=== PATIENT | female | born 1995 | race Two or more races ===

== ENCOUNTER 2017-12-08 05:35 | Inpatient (IN) | payer MEDICAID ==
[2017-12-08] MEDS ORDERED: Metoclopramide 10 MG/2 ML SDV ONE (06:02)
[2017-12-08] MEDS ORDERED: Citric Acid/Sodium Citrate Solution 30 ML Cup ONE (06:02)
[2017-12-08] MEDS ORDERED: Bupivacaine 0.5% 30 ML SDV ONE (06:08)
[2017-12-08] MEDS ORDERED: Metoclopramide 10 MG/2 ML SDV IVPUSH ONE (06:11)
[2017-12-08] MEDS ORDERED: ceFAZolin 2 GM in Premix Bag 1 BAG IV ONE (06:11)
[2017-12-08] MEDS ORDERED: Sodium Chloride 0.9% 10 ML Syringe FLUSH PRN (06:11)
[2017-12-08] MEDS ORDERED: Citric Acid/Sodium Citrate Solution 30 ML Cup PO ONE (06:11)
--- NOTE | 2017-12-08 06:14 | PCM.LDHP ---
L&D History of Present Illness - General Date of Service: 12/08/17 Admit Problem/Dx: Admission Diagnosis/Problem Admission Diagnosis/Problem Source of Information: Patient History Limitations: Reports: No Limitations - History of Present Illness Introduction:: 22-year-old with 4 prior C-sections estimated due date unsure but stated to be 40 weeks and 2 days by patient. Last menstrual period puts her at 45+ weeks presented to labor and delivery 5 cm dilated 100% effaced proceed with section. Improves with: Reports: None Worsens with: Reports: None Associated Symptoms: Reports: N - Related Data Allergies/Adverse Reactions: Allergies Allergy/AdvReac Type Severity Reaction Status Date / Time epinephrine [From EpiPen] Allergy Swelling Verified 05/26/15 19:49 DIRECTOR OF PATIENT SAFETY venom-honey bee Allergy Swelling Verified 05/26/15 19:49 DIRECTOR OF PATIENT SAFETY [bee venom (honey bee)] Home Medications: Home Meds . [No Known Home Meds] 03/14/15 [History] Past Medical History HEENT History: Reports: None Cardiovascular History: Reports: None Respiratory History: Reports: None Gastrointestinal History: Reports: None Genitourinary History: Reports: None Other Genitourinary History: "kidney infection" DIRECTOR OF LABOR RELATIONS History: Reports: Musculoskeletal History: Reports: None Neurological History: Reports: None Psychiatric History: Reports: None Endocrine/Metabolic History: Reports: None Hematologic History: Reports: None Immunologic History: Reports: None Oncologic (Cancer) History: Reports: None Dermatologic History: Reports: None - Past Surgical History Female Surgical History: Reports: Section H&P Review of Systems - Review of Systems: Review Of Systems: See Below General: Reports: No Symptoms HEENT: Reports: No Symptoms Pulmonary: Reports: No Symptoms Cardiovascular: Reports: No Symptoms Gastrointestinal: Reports: No Symptoms Genitourinary: Reports: No Symptoms Musculoskeletal: Reports: No Symptoms Skin: Reports: No Symptoms Psychiatric: Reports: No Symptoms Neurological: Reports: No Symptoms Hematologic/Lymphatic: Reports: No Symptoms Immunologic: Reports: No Symptoms L&D Exam - Exam Exam: See Below - OB Specific Fundal Height In cm: 37 Contraction Duration (sec): 60 Contraction Frequency (min): 3 Contraction Intensity: Moderate to Strong Movement: Active Heart Tones: Present Heart Tones per Min: 130 (accel with exam) Heart Rate (FHR) Variability: Moderate (6-25 bmp) Presentation: Vertex - Hamm Score Hamm Score Cervix Position: Anterior Hamm Score Consistency: Soft Hamm Score Effacement: >80% Hamm Score Dilation: > 5 cm Hamm Score 's Station: +1, +2 Hamm Score Total: 13 - Exam General: Alert, Oriented HEENT: PERRLA, Conjunctiva Clear, EACs Clear, EOMI, Hearing Intact, Mucosa Moist & [place], Nares Patent, Normal Nasal Septum, Posterior Pharynx Clear, TMs Clear Neck: Supple, Trachea Midline Lungs: Clear to Auscultation, Normal Respiratory Effort Cardiovascular: Regular Rate, Regular Rhythm GI/Abdominal Exam: Normal Bowel Sounds, Soft, Non-Tender Rectal Exam: Normal Exam, Normal Rectal Tone Genitourinary: Normal external exam, Normal bimanual exam, Normal speculum exam Extremities: Normal Inspection, Normal Range of Motion, Non-Tender, No Pedal Edema, Normal Capillary Refill Skin: Warm, Dry, Intact Neurological: Reflexes Equal Bilateral Psychiatric: Alert, Normal Affect, Normal Mood - Problem List (1) 40 weeks gestation of SNOMED Code(s): 54312172 ICD Code: Z3A.40 - 40 WEEKS GESTATION OF Status: Acute Current Visit: Yes (2) delivery due to maternal disorder, delivered, current hospitalization SNOMED Code(s): 764260954 ICD Code: O82 - ENCOUNTER FOR DELIVERY WITHOUT INDICATION; O99.89 - OTH DISEASES AND CONDITIONS COMPL PREG/CHLDBRTH Status: Acute Current Visit : Yes (3) History of SNOMED Code(s): 129834687 ICD Code: Z98.891 - HISTORY OF UTERINE SCAR FROM PREVIOUS SURGERY Status: Acute Current Visit: Yes Problem List Initiated/Reviewed/Updated: No Orders Last 24hrs: Active Orders 24 hr Category Date Time Status CBC W/O DIFF,HEMOGRAM [HEME] Stat Lab 12/08/17 05:50 Ordered TYPE AND SCREEN [BBK] Stat Lab 12/08/17 05:50 Ordered Assessment/Plan Comment:: Proceed with
[2017-12-08] MEDS ORDERED: Lactated Ringers 1,000 ML IV SCH (06:15)
[2017-12-08] MEDS ORDERED: Oxytocin 10 Units/1 ML SDV ONE ×2 (06:16→06:48)
[2017-12-08] MEDS ORDERED: Ondansetron 4 MG/2 ML SDV ONE (06:16)
[2017-12-08] MEDS ORDERED: Morphine PF 10 MG/10 ML SDV ONE (06:16)
[2017-12-08] MEDS ORDERED: ceFAZolin 1 GM Vial ONE (06:16)
[2017-12-08] MEDS ORDERED: Ketorolac 30 MG/ML SDV ONE (06:16)
[2017-12-08] MEDS ORDERED: Lactated Ringers 2,000 ML ONE (06:16)
[2017-12-08] MEDS ORDERED: diphenhydrAMINE 50 MG/ML SDV IVPUSH PRN ×2 (06:50→09:39)
[2017-12-08] MEDS ORDERED: ePHEDrine 50 MG/ML SDV IVPUSH PRN ×2 (06:50→09:39)
[2017-12-08] MEDS ORDERED: Ondansetron 4 MG/2 ML SDV IVPUSH PRN (06:50)
[2017-12-08] MEDS ORDERED: Ketorolac 30 MG/ML SDV IVPUSH ONE (06:50)
[2017-12-08] MEDS ORDERED: fentaNYL 100 MCG/2 ML SDV IVPUSH PRN (06:50)
[2017-12-08] MEDS ORDERED: Lidocaine 1% 2 ML ONE (07:10)
[2017-12-08] MEDS ORDERED: Phenylephrine/Normal Saline 100 MCG/ML 10 ML Syringe ONE (07:27)
[2017-12-08] MEDS ORDERED: ePHEDrine/Normal Saline 25 MG/5 ML Syringe ONE (07:27)
--- NOTE | 2017-12-08 07:45 | PCM.OPNOTE ---
- General Post-Op/Procedure Note Date of Surgery/Procedure: 12/08/17 Operative Procedure(s): Repeat low segment transverse (fifth ). Cystorrhaphy Pre Op Diagnosis: 4 prior C-sections in active labor Post-Op Diagnosis: Same plus bladder injury (felt to be at time of insertion of Myers because of very thin bladder wall from 4 previous C-sections and scarring in that area.) and hemorrhage. Anesthesia Technique: Spinal Primary Surgeon: Erick Guevara Secondary Surgeon: Marian Jacobson Anesthesia Provider: Chiara Moser Reason Technical Education Teacher Was Necessary: Difficult surgery fifth for retraction assist in surgery decrease comorbidity and comortality Role of Technical Education Teacher: Difficult surgery fifth for retraction assist in surgery decrease comorbidity and comortality Fluid Replacement, Intraop: 3,500 (2 Units O neg) Output, Urine Amount: 50 EBL in mLs: 2,000 Drain/Tube Comments:: Only to gravity drainage Complications: Small rent in the bladder was repaired (bladder wall very thin from 4 prior C-sections and rent probably occurred when the Myers catheter was placed) surgical incision was 5-6 cm above the area of the rent in the bladder. hemorrhage requiring blood transfusion due to drop in vital signs. Condition: Good Free Text/Narrative:: Patient transported to operating room and placed under spinal anesthesia in the supine position with wedge under the right hip and right flank. SCDs in place and functioning prior surgery. Ancef 2 g given intravenously prior surgery. Patient's abdomen prepared and draped in a sterile fashion after Myers catheter was placed. In (rent in bladder wall was noted at time of section approximate 6 cm from the area of the incision. Rent felt to have occurred with placement of Myers catheter because of very thin bladder wall related to 4 previous C-sections) timeout was performed confirming name, date of , procedure as section repeat. Adequate level of anesthesia was confirmed. was brought to the operating room. Injecting 20 mL of 0.5 % Marcaine in the area of the planned incision which had been marked on the band drape, the incision was made and care was sharp section to into the anterior fascia. Entry was made into the abdominal cavity at the superior edge of the incision near the umbilicus to try to avoid damage to bladder. Bladder flap was created pushed caudad. Uterine incision was made and the uterine cavity was entered meconium staining was encountered. Dr. Mcgowan system support specialist present and cared for the . The male was delivered at 0636 hrs. Apgars 8/9 no nuchal cord weight 8 lbs. 5 oz. Cord clamped baby handed immediately to the system support specialist. Cord blood collected from three-vessel cord. Segment of cord was collected for pediatrics. The placenta was removed manually. Image her cavity inspected. Sponge needle pack asthma and and sharp count correct times one uterine incision closed with 0 Monocryl first layer running locking suture. At that time urine was noted to be leaking from the rent in the bladder. Attention was turned to the bladder and the cystorrhaphy was performed closing the bladder in 2 layers with first layer running locking suture of 2-0 Monocryl second layer imbricating 2-0 Monocryl. Baby formula was then introduced into the Myers catheter and no spill was noted. (When the catheter was first placed the urine output was 5 mL. An rent felt to be secondary to very thin bladder wall from 4 previous C-sections. The scar was approximate 6 cm above the area of the rent and no surgical procedure had been performed in the area of the rent. The second layer of the uterine closure was imbricating suture with 0 Monocryl. Both tubes and ovaries were normal clot screen from the gutters and cul-de-sac. Due to the amount of blood loss patient's blood pressure dropped estimated blood loss 2000 mL 2 units of O - blood were ordered because patient's blood had not had time to be type and crossmatch. And blood transfusion was begun sponge needle pack asthma sharp count PDS for the anterior fascia utilizing electrocautery and freeing up the scar tissue from previous C-sections in the subcutaneous tissue and the subcutaneous tissue was approximated with 0 interrupted suture 5 using Monocryl. The skin was closed with Travis needle 3-0 Monocryl. Dermabond Preneo applied. Clots were cleaned from the vagina and included in the 2000 mL estimated blood loss there was approximately 250-300 mL of blood clot from the vagina. Patient transported postanesthesia care unit in serious condition. Second unit of blood has been transfused. Patient will be typed and cross match for 4 units of blood in case Seim is needed hemoglobin hematocrit ordered for 4 hours postop.
--- NOTE | 2017-12-08 07:58 | PCM.PREANE ---
Preanesthetic Assessment - Anesthesia/Transfusion/Family Hx Anesthesia History: Prior Anesthesia Without Reaction Family History of Anesthesia Reaction: No Transfusion History: Unknown Intubation History: Unknown - Review of Systems General: No Symptoms Pulmonary: No Symptoms Cardiovascular: No Symptoms Gastrointestinal: No Symptoms Neurological: No Symptoms Other: Reports: None - Physical Assessment NPO Status Date: 12/08/17 NPO Status Time: 00:00 Pulse: 95 O2 Sat by Pulse Oximetry: 98 Respiratory Rate: 17 Blood Pressure: 103/60 Vital Signs: Last Vital Signs Temp 36.7 C 12/08/17 07:36 Pulse 83 12/08/17 07:36 Resp 17 12/08/17 07:36 BP 89/44 L 12/08/17 07:36 Pulse Ox 100 12/08/17 07:36 ASA Class: 2E Mental Status: Alert & Oriented x3 Airway Class: Mallampati = 1 Dentition: Reports: Normal Dentition Thyro-Mental Finger Breadths: 3 Mouth Opening Finger Breadths: 3 ROM/Head Extension: Full Lungs: Clear to Auscultation, Normal Respiratory Effort Cardiovascular: Regular Rate, Regular Rhythm - Lab Values: Laboratory Last Values WBC 10.47 K/mm3 (3.98-10.04) H 12/08/17 06:10 RBC 3.46 M/mm3 (3.98-5.22) L 12/08/17 06:10 Hgb 9.8 gm/L (11.2-15.7) L 12/08/17 06:10 Hct 31.2 % (34.1-44.9) L 12/08/17 06:10 MCV 90.2 fl (79.4-94.8) 12/08/17 06:10 MCH 28.3 pg (25.6-32.2) 12/08/17 06:10 MCHC 31.4 g/dl (32.2-35.5) L 12/08/17 06:10 RDW Std Deviation 48.7 fL (36.4-46.3) H 12/08/17 06:10 Plt Count 281 K/mm3 (182-369) 12/08/17 06:10 MPV 9.1 fl (9.4-12.3) L 12/08/17 06:10 Neut % (Auto) 73.1 % (34.0-71.1) H 12/08/17 06:10 Lymph % (Auto) 17.7 % (19.3-51.7) L 12/08/17 06:10 [place]kins % (Auto) 8.2 % (4.7-12.5) 12/08/17 06:10 Eos % (Auto) 0.2 (0.7-5.8) L 12/08/17 06:10 Baso % (Auto) 0.3 % (0.1-1.2) 12/08/17 06:10 Neut # (Auto) 7.66 K/mm3 (1.56-6.13) H 12/08/17 06:10 Lymph # (Auto) 1.85 K/mm3 (1.18-3.74) 12/08/17 06:10 [place]kins # (Auto) 0.86 K/mm3 (0.24-0.36) H 12/08/17 06:10 Eos # (Auto) 0.02 K/mm3 (0.04-0.36) L 12/08/17 06:10 Baso # (Auto) 0.03 K/mm3 (0.01-0.08) 12/08/17 06:10 Manual Slide Review Not Reportable 12/08/17 06:10 Crossmatch See Detail 12/08/17 06:10 - Allergies Allergies/Adverse Reactions: Allergies Allergy/AdvReac Type Severity Reaction Status Date / Time epinephrine [From EpiPen] Allergy Swelling Verified 05/26/15 19:49 AUDIO VISUAL COORDINATOR venom-honey bee Allergy Swelling Verified 05/26/15 19:49 AUDIO VISUAL COORDINATOR [bee venom (honey bee)] - Acknowledgements Anesthesia Type Planned: Spinal Pt an Appropriate Candidate for the Planned Anesthesia: Yes Alternatives and Risks of Anesthesia Discussed w Pt/Guardian: Yes Pt/Guardian Understands and Agrees with Anesthesia Plan: Yes Additional Comments: Called for Stat C section. Spoke with patient and her . Verbalized understanding. Dr. Guevara at bedside. PreAnesthesia Questionnaire HEENT History: Reports: None Cardiovascular History: Reports: None Respiratory History: Reports: None Gastrointestinal History: Reports: None Genitourinary History: Reports: None Other Genitourinary History: "kidney infection" RADIOLOGY NURSE History: Reports: Musculoskeletal History: Reports: None Neurological History: Reports: None Psychiatric History: Reports: None Endocrine/Metabolic History: Reports: None Hematologic History: Reports: None Immunologic History: Reports: None Oncologic (Cancer) History: Reports: None Dermatologic History: Reports: None - Past Surgical History Female Surgical History: Reports: Section - HOME MEDS Home Medications: Home Meds . [No Known Home Meds] 03/14/15 [History] - CURRENT (IN HOUSE) MEDS Current Meds: Current Medications Diphenhydramine HCl (Benadryl) 25 mg IVPUSH Q6H PRN PRN Reason: Pruritis Ephedrine Sulfate (Ephedrine Sulfate) 5 mg IVPUSH ASDIRECTED PRN PRN Reason: Hypotension Fentanyl (Sublimaze) 50 mcg IVPUSH Q5M PRN PRN Reason: Pain Lactated Ringer's (Ringers, Lactated) 1,000 mls @ 125 mls/hr IV ASDIRECTED BARRETT Ondansetron HCl (Zofran) 4 mg IVPUSH ONETIME PRN PRN Reason: Nausea/Vomiting Sodium Chloride (Saline Flush) 10 ml FLUSH ASDIRECTED PRN PRN Reason: Keep Vein Open Discontinued Medications Bupivacaine HCl (Marcaine 0.5%) Confirm Administered Dose 30 ml .ROUTE .STK-MED ONE Stop: 12/08/17 06:09 Cefazolin Sodium (Ancef) Confirm Administered Dose 2 gm .ROUTE .STK-MED ONE Stop: 12/08/17 06:17 Citric Acid/Sodium Citrate (Bicitra Solution) Confirm Administered Dose 30 ml .ROUTE .STK-MED ONE Stop: 12/08/17 06:03 Citric Acid/Sodium Citrate (Bicitra Solution) 30 ml PO ONETIME ONE Stop: 12/08/17 06:12 Ephedrine Sulfate (Ephedrine In Ns) Confirm Administered Dose 25 mg .ROUTE .STK- MED ONE Stop: 12/08/17 07:28 Lactated Ringer's (Ringers, Lactated) Confirm Administered Dose 2,000 mls @ as directed .ROUTE .STK-MED ONE Stop: 12/08/17 06:17 Cefazolin Sodium/Dextrose 2 gm (/ Premix) 50 mls @ 100 mls/hr IV ONETIME ONE Stop: 12/08/17 06:40 Lidocaine HCl (Xylocaine-Mpf 1%) Confirm Administered Dose 2 mls @ as directed .ROUTE .STK-MED ONE Stop: 12/08/17 07:11 Ketorolac Tromethamine (Toradol) Confirm Administered Dose 30 mg .ROUTE .STK- MED ONE Stop: 12/08/17 06:17 Ketorolac Tromethamine (Toradol) 30 mg IVPUSH ONETIME ONE Stop: 12/08/17 06:51 Metoclopramide HCl (Reglan) Confirm Administered Dose 10 mg .ROUTE .STK-MED ONE Stop: 12/08/17 06:03 Metoclopramide HCl (Reglan) 10 mg IVPUSH ONETIME ONE Stop: 12/08/17 06:12 Morphine Sulfate (Duramorph Pf) Confirm Administered Dose 10 mg .ROUTE .ST-MED ONE Stop: 12/08/17 06:17 Ondansetron HCl (Zofran) Confirm Administered Dose 4 mg .ROUTE .ST-MED ONE Stop: 12/08/17 06:17 Oxytocin (Pitocin) Confirm Administered Dose 10 unit .ROUTE .STK-MED ONE Stop: 12/08/17 06:17 Oxytocin (Pitocin) Confirm Administered Dose 10 unit .ROUTE .ST-MED ONE Stop: 12/08/17 06:49 Phenylephrine HCl (Phenylephrine In Ns 100 Mcg/Ml) Confirm Administered Dose 2 mg .ROUTE .STK-MED ONE Stop: 12/08/17 07:28
--- NOTE | 2017-12-08 07:59 | PCM.POSTAN ---
POST ANESTHESIA ASSESSMENT - MENTAL STATUS Mental Status: Alert, Oriented - VITAL SIGNS Pulse Rate: 83 SaO2: 100 Resp Rate: 17 Blood Pressure: 88/44 Temperature: 36.7 C - RESPIRATORY Respiratory Status: Respiratory Rate WNL, Airway Patent, O2 Saturation Stable, Supplemental Oxygen - CARDIOVASCULAR CV Status: Pulse Rate WNL, Blood Pressure Stable - GASTROINTESTINAL GI Status: No Symptoms - PAIN Pain Score: 0 - POST OP HYDRATION Hydration Status: Adequate & Stable
[2017-12-08] MEDS ORDERED: Ondansetron 4 MG/2 ML SDV IV PRN (09:39)
[2017-12-08] MEDS ORDERED: Acetaminophen 325 MG Tab PO PRN (09:39)
[2017-12-08] MEDS ORDERED: Lanolin 100% Cream 7 GM Tube TOP PRN (09:39)
[2017-12-08] MEDS ORDERED: Dextrose 5%-Lactated Ringers 1,000 ML IV SCH (09:39)
[2017-12-08] MEDS ORDERED: Naloxone 0.4 MG/ML SDV IVPUSH PRN (09:39)
[2017-12-08] MEDS: Simethicone 80 MG Tab.Chew PO SCH ×4 (11:00→21:45)
--- NOTE | 2017-12-08 11:01 | PCM.SN ---
- Free Text/Narrative Note: Pitocin has been restarted. Cervix unchanged from 0830 exam. Still vertex. Cat i FHR
--- NOTE | 2017-12-08 12:02 | PCM.SN ---
- Free Text/Narrative Note: Hemoglobin approximate 4 hours postop 8.5 after 2 units of O- blood. Vital signs are stable. Patient is awake alert not symptomatic at present time. Repeat CBC ordered for tomorrow morning and Sunday morning.
[2017-12-08] MEDS: Ketorolac 30 MG/ML SDV IVPUSH SCH ×2 (13:33→18:50)
[2017-12-08] MEDS ORDERED: Sodium Chloride 0.9% 500 ML IV SCH (17:00)
[2017-12-09] MEDS: Ketorolac 30 MG/ML SDV IVPUSH SCH (02:42)
--- NOTE | 2017-12-09 10:51 | PCM.SN ---
- Free Text/Narrative Note: AB cord blood positive for drugs and urine of mother presumptive positive confirmatory test pending. Ornamental Painter has on CPS hold until Sunday. Seen on rounds today patient's sleeping so she is "tired", declined blood transfusion for now hemoglobin as low at 7.1 this morning after 2 units of O- blood yesterday. Patient had been more alert earlier was visited by a relative and has now very somnolent. A urinalysis and UDS ordered. Incision looks normal urine is clear and yellow begin Macrobid 100 by mouth twice a day and will need to take this until Myers is removed in approximately 10 days. Probably around 18 December the Myers will be removed. No leg cramping. No heavy vaginal bleeding. Chest is clear no abnormal heart sounds no abnormal breath sounds.
[2017-12-09] MEDS: Nitrofurantoin Monohydrate/Macrocrystalline 100 MG Cap PO SCH ×2 (11:03→20:44)
[2017-12-09] MEDS: Simethicone 80 MG Tab.Chew PO SCH ×4 (11:03→22:15)
[2017-12-09] MEDS: Ibuprofen 600 MG Tab PO PRN ×2 (14:15→20:46)
[2017-12-09] MEDS: Acetaminophen/oxyCODONE 325-5 MG Tab PO PRN (15:26)
[2017-12-09] MEDS: Docusate Sodium 100 MG Cap PO PRN (20:45)
[2017-12-10] MEDS: Acetaminophen/oxyCODONE 325-5 MG Tab PO PRN ×3 (05:15→20:33)
[2017-12-10] MEDS: Docusate Sodium 100 MG Cap PO PRN ×2 (09:56→20:28)
[2017-12-10] MEDS: Simethicone 80 MG Tab.Chew PO SCH ×3 (09:56→20:31)
[2017-12-10] MEDS: Ibuprofen 600 MG Tab PO PRN ×2 (09:57→20:30)
[2017-12-10] MEDS: Nitrofurantoin Monohydrate/Macrocrystalline 100 MG Cap PO SCH ×2 (09:58→20:32)
[2017-12-10] MEDS ORDERED: diphenhydrAMINE 25 MG Cap PO ONE (10:20)
[2017-12-10] MEDS ORDERED: Sodium Chloride 0.9% 500 ML IV SCH (10:30)
--- NOTE | 2017-12-10 10:33 | PCM.SN ---
- Free Text/Narrative Note: Second day postop Patient is afebrile In general patient is very pale. Chest is clear. Cardiovascular examination reveals grade 2/6 murmur probably secondary to the anemia (hemoglobin 7.0) patient gets tired with ambulation. And feels extremely tired this morning. Concerned about her anemia and talked with the patient at length and she and consort agreed with 2 unit blood transfusion. Uterus is involuting normally at U -2. Incision normal. No leg cramping. No heavy vaginal bleeding at this time. Order written for 2 units of transfusion. I talked with the lab concerning and a new type and screen since patient did receive 2 units of O- blood at surgery. I talked with body in the lab and asked on 3 separate occasions if a new type and screen was necessary before transfusing blood and she said no. Will order CBC 4 AM. Patient is not in condition to go home at present time.
[2017-12-11] MEDS: Ibuprofen 600 MG Tab PO PRN (04:39)
[2017-12-11] MEDS: Simethicone 80 MG Tab.Chew PO SCH ×2 (05:05→08:12)
[2017-12-11] MEDS: Acetaminophen/oxyCODONE 325-5 MG Tab PO PRN (08:11)
[2017-12-11] MEDS: Nitrofurantoin Monohydrate/Macrocrystalline 100 MG Cap PO SCH (08:11)
[2017-12-11 08:14] VITALS: BP 131/76
--- NOTE | 2017-12-11 10:35 | PCM.DCSUM1 ---
Discharge Summary - Hospital Course Free Text/Narrative:: [facility], [place] Post-Op/Procedure Note Patient Name: ISA MARTINEZ Date of : 89 Patient Status: Inpatient Attending Provider: Erick Guevara Date: 12/08/17 07:40 Initialization Date: 12/08/17 07:40 - General Post-Op/Procedure Note Date of Surgery/Procedure: 12/08/17 Operative Procedure(s): Repeat low segment transverse (fifth ). Cystorrhaphy Pre Op Diagnosis: 4 prior C-sections in active labor Post-Op Diagnosis: Same plus bladder injury (felt to be at time of insertion of Pro because of very thin bladder wall from 4 previous C-sections and scarring in that area.) and hemorrhage. Anesthesia Technique: Spinal Primary Surgeon: Erick Guevara Secondary Surgeon: Marian Jacobson Anesthesia Provider: Chiara Moser Reason Communication Manager Was Necessary: Difficult surgery fifth for retraction assist in surgery decrease comorbidity and comortality Role of Communication Manager: Difficult surgery fifth for retraction assist in surgery decrease comorbidity and comortality Fluid Replacement, Intraop: 3,500 (2 Units O neg) Output, Urine Amount: 50 EBL in mLs: 2,000 Drain/Tube Comments:: Only to gravity drainage Complications: Small rent in the bladder was repaired (bladder wall very thin from 4 prior C-sections and rent probably occurred when the Pro catheter was placed) surgical incision was 5-6 cm above the area of the rent in the bladder. hemorrhage requiring blood transfusion due to drop in vital signs. Condition: Good Free Text/Narrative:: Patient transported to operating room and placed under spinal anesthesia in the supine position with wedge under the right hip and right flank. SCDs in place and functioning prior surgery. Ancef 2 g given intravenously prior surgery. Patient's abdomen prepared and draped in a sterile fashion after Pro catheter was placed. In (rent in bladder wall was noted at time of section approximate 6 cm from the area of the incision. Rent felt to have occurred with placement of Pro catheter because of very thin bladder wall related to 4 previous C-sections) timeout was performed confirming name, date of , procedure as section repeat. Adequate level of anesthesia was confirmed. was brought to the operating room. Injecting 20 mL of 0.5 % Marcaine in the area of the planned incision which had been marked on the band drape, the incision was made and care was sharp section to into the anterior fascia. Entry was made into the abdominal cavity at the superior edge of the incision near the umbilicus to try to avoid damage to bladder. Bladder flap was created pushed caudad. Uterine incision was made and the uterine cavity was entered meconium staining was encountered. Dr. Mcgowan supervisor bakery sanitation present and cared for the . The male was delivered at 0636 hrs. Apgars 8/9 no nuchal cord weight 8 lbs. 5 oz. Cord clamped baby handed immediately to the supervisor bakery sanitation. Cord blood collected from three-vessel cord. Segment of cord was collected for pediatrics. The placenta was removed manually. Image her cavity inspected. Sponge needle pack asthma and and sharp count correct times one uterine incision closed with 0 Monocryl first layer running locking suture. At that time urine was noted to be leaking from the rent in the bladder. Attention was turned to the bladder and the cystorrhaphy was performed closing the bladder in 2 layers with first layer running locking suture of 2-0 Monocryl second layer imbricating 2-0 Monocryl. Baby formula was then introduced into the Pro catheter and no spill was noted. (When the catheter was first placed the urine output was 5 mL. An rent felt to be secondary to very thin bladder wall from 4 previous C-sections. The scar was approximate 6 cm above the area of the rent and no surgical procedure had been performed in the area of the rent. The second layer of the uterine closure was imbricating suture with 0 Monocryl. Both tubes and ovaries were normal clot screen from the gutters and cul-de-sac. Due to the amount of blood loss patient's blood pressure dropped estimated blood loss 2000 mL 2 units of O - blood were ordered because patient's blood had not had time to be type and crossmatch. And blood transfusion was begun sponge needle pack asthma sharp count PDS for the anterior fascia utilizing electrocautery and freeing up the scar tissue from previous C-sections in the subcutaneous tissue and the subcutaneous tissue was approximated with 0 interrupted suture 5 using Monocryl. The skin was closed with Travis needle 3-0 Monocryl. Dermabond Preneo applied. Clots were cleaned from the vagina and included in the 2000 mL estimated blood loss there was approximately 250-300 mL of blood clot from the vagina. Patient transported postanesthesia care unit in serious condition. Second unit of blood has been transfused. Patient will be typed and cross match for 4 units of blood in case Seim is needed hemoglobin hematocrit ordered for 4 hours postop. HPI Initial Comments: [facility], [place] Post-Op/Procedure Note Patient Name: ISA MARTINEZ Date of : 89 Patient Status: Inpatient Attending Provider: Erick Guevara Date: 12/08/17 07:40 Initialization Date: 12/08/17 07:40 - General Post-Op/Procedure Note Date of Surgery/Procedure: 12/08/17 Operative Procedure(s): Repeat low segment transverse (fifth ). Cystorrhaphy Pre Op Diagnosis: 4 prior C-sections in active labor Post-Op Diagnosis: Same plus bladder injury (felt to be at time of insertion of Pro because of very thin bladder wall from 4 previous C-sections and scarring in that area.) and hemorrhage. Anesthesia Technique: Spinal Primary Surgeon: Erick Guevara Secondary Surgeon: Marian Jacobson Anesthesia Provider: Chiara Moser Reason Communication Manager Was Necessary: Difficult surgery fifth for retraction assist in surgery decrease comorbidity and comortality Role of Communication Manager: Difficult surgery fifth for retraction assist in surgery decrease comorbidity and comortality Fluid Replacement, Intraop: 3,500 (2 Units O neg) Output, Urine Amount: 50 EBL in mLs: 2,000 Drain/Tube Comments:: Only to gravity drainage Complications: Small rent in the bladder was repaired (bladder wall very thin from 4 prior C-sections and rent probably occurred when the Pro catheter was placed) surgical incision was 5-6 cm above the area of the rent in the bladder. hemorrhage requiring blood transfusion due to drop in vital signs. Condition: Good Free Text/Narrative:: Patient transported to operating room and placed under spinal anesthesia in the supine position with wedge under the right hip and right flank. SCDs in place and functioning prior surgery. Ancef 2 g given intravenously prior surgery. Patient's abdomen prepared and draped in a sterile fashion after Pro catheter was placed. In (rent in bladder wall was noted at time of section approximate 6 cm from the area of the incision. Rent felt to have occurred with placement of Pro catheter because of very thin bladder wall related to 4 previous C-sections) timeout was performed confirming name, date of , procedure as section repeat. Adequate level of anesthesia was confirmed. was brought to the operating room. Injecting 20 mL of 0.5 % Marcaine in the area of the planned incision which had been marked on the band drape, the incision was made and care was sharp section to into the anterior fascia. Entry was made into the abdominal cavity at the superior edge of the incision near the umbilicus to try to avoid damage to bladder. Bladder flap was created pushed caudad. Uterine incision was made and the uterine cavity was entered meconium staining was encountered. Dr. Mcgowan supervisor bakery sanitation present and cared for the . The male was delivered at 0636 hrs. Apgars 8/9 no nuchal cord weight 8 lbs. 5 oz. Cord clamped baby handed immediately to the supervisor bakery sanitation. Cord blood collected from three-vessel cord. Segment of cord was collected for pediatrics. The placenta was removed manually. Image her cavity inspected. Sponge needle pack asthma and and sharp count correct times one uterine incision closed with 0 Monocryl first layer running locking suture. At that time urine was noted to be leaking from the rent in the bladder. Attention was turned to the bladder and the cystorrhaphy was performed closing the bladder in 2 layers with first layer running locking suture of 2-0 Monocryl second layer imbricating 2-0 Monocryl. Baby formula was then introduced into the Pro catheter and no spill was noted. (When the catheter was first placed the urine output was 5 mL. An rent felt to be secondary to very thin bladder wall from 4 previous C-sections. The scar was approximate 6 cm above the area of the rent and no surgical procedure had been performed in the area of the rent. The second layer of the uterine closure was imbricating suture with 0 Monocryl. Both tubes and ovaries were normal clot screen from the gutters and cul-de-sac. Due to the amount of blood loss patient's blood pressure dropped estimated blood loss 2000 mL 2 units of O - blood were ordered because patient's blood had not had time to be type and crossmatch. And blood transfusion was begun sponge needle pack asthma sharp count PDS for the anterior fascia utilizing electrocautery and freeing up the scar tissue from previous C-sections in the subcutaneous tissue and the subcutaneous tissue was approximated with 0 interrupted suture 5 using Monocryl. The skin was closed with Travis needle 3-0 Monocryl. Dermabond Preneo applied. Clots were cleaned from the vagina and included in the 2000 mL estimated blood loss there was approximately 250-300 mL of blood clot from the vagina. Patient transported postanesthesia care unit in serious condition. Second unit of blood has been transfused. Patient will be typed and cross match for 4 units of blood in case Seim is needed hemoglobin hematocrit ordered for 4 hours postop. Brief History: [facility], [place] . Post-Op/Procedure Note. [facility]: [id number]. Date of : [birth year]Patient Status: Inpatient. Attending Provider: Erick Guevaraccount Number: [id number]. Date: 12/08/17 07:40Initialization Date: 07:40. - General Post-Op/Procedure Note. Date of Surgery/Procedure: . Operative Procedure(s): Repeat low segment transverse (fifth C -section). Cystorrhaphy. Pre Op Diagnosis: 4 prior C-sections in active labor. Post-Op Diagnosis: Same plus bladder injury (felt to be at time of insertion of Pro because of very thin bladder wall from 4 previous C-sections and scarring in that area.) and hemorrhage. Anesthesia Technique: Spinal. Primary Surgeon: Erick Guevara. Secondary Surgeon: Marian Jacobson. Anesthesia Provider: Chiara Moser. Reason Communication Manager Was Necessary: Difficult surgery fifth for retraction assist in surgery decrease comorbidity and comortality. Role of Communication Manager: Difficult surgery fifth C- section for retraction assist in surgery decrease comorbidity and comortality. Fluid Replacement, Intraop: 3,500 (2 Units O neg). Output, Urine Amount: 50. EBL in mLs: 2,000. Drain/Tube Comments:: Only to gravity drainage. Complications: Small rent in the bladder was repaired (bladder wall very thin from 4 prior C-sections and rent probably occurred when the Pro catheter was placed) surgical incision was 5-6 cm above the area of the rent in the bladder. hemorrhage requiring blood transfusion due to drop in vital signs. Condition: Good. Free Text/Narrative:: Patient transported to operating room and placed under spinal anesthesia in the supine position with wedge under the right hip and right flank. SCDs in place and functioning prior surgery. Ancef 2 g given intravenously prior surgery. Patient's abdomen prepared and draped in a sterile fashion after Pro catheter was placed. In (rent in bladder wall was noted at time of section approximate 6 cm from the area of the incision. Rent felt to have occurred with placement of Pro catheter because of very thin bladder wall related to 4 previous C- sections) timeout was performed confirming name, date of , procedure as section repeat. Adequate level of anesthesia was confirmed. was brought to the operating room. Injecting 20 mL of 0.5% Marcaine in the area of the planned incision which had been marked on the band drape, the incision was made and care was sharp section to into the anterior fascia. Entry was made into the abdominal cavity at the superior edge of the incision near the umbilicus to try to avoid damage to bladder. Bladder flap was created pushed caudad. Uterine incision was made and the uterine cavity was entered meconium staining was encountered. Dr. Mcgowan supervisor bakery sanitation present and cared for the . The male was delivered at 0636 hrs. Apgars 8/9 no nuchal cord weight 8 lbs. 5 oz. Cord clamped baby handed immediately to the supervisor bakery sanitation. Cord blood collected from three-vessel cord. Segment of cord was collected for pediatrics. The placenta was removed manually. Image her cavity inspected. Sponge needle pack asthma and and sharp count correct times one uterine incision closed with 0 Monocryl first layer running locking suture. At that time urine was noted to be leaking from the rent in the bladder. Attention was turned to the bladder and the cystorrhaphy was performed closing the bladder in 2 layers with first layer running locking suture of 2-0 Monocryl second layer imbricating 2-0 Monocryl. Baby formula was then introduced into the Pro catheter and no spill was noted. (When the catheter was first placed the urine output was 5 mL. An rent felt to be secondary to very thin bladder wall from 4 previous C-sections. The scar was approximate 6 cm above the area of the rent and no surgical procedure had been performed in the area of the rent. The second layer of the uterine closure was imbricating suture with 0 Monocryl. Both tubes and ovaries were normal clot screen from the gutters and cul-de-sac. Due to the amount of blood loss patient's blood pressure dropped estimated blood loss 2000 mL 2 units of O- blood were ordered because patient's blood had not had time to be type and crossmatch. And blood transfusion was begun sponge needle pack asthma sharp count PDS for the anterior fascia utilizing electrocautery and freeing up the scar tissue from previous C-sections in the subcutaneous tissue and the subcutaneous tissue was approximated with 0 interrupted suture 5 using Monocryl. The skin was closed with Travis needle 3-0 Monocryl. Dermabond Preneo applied. Clots were cleaned from the vagina and included in the 2000 mL estimated blood loss there was approximately 250-300 mL of blood clot from the vagina. Patient transported postanesthesia care unit in serious condition. Second unit of blood has been transfused. Patient will be typed and cross match for 4 units of blood in case Seim is needed hemoglobin hematocrit ordered for 4 hours postop. - Discharge Data Discharge Date: 12/11/17 Discharge Disposition: Home, Self-Care 01 Condition: Good - Discharge Diagnosis/Problem(s) (1) 40 weeks gestation of SNOMED Code(s): 90478436 ICD Code: Z3A.40 - 40 WEEKS GESTATION OF Status: Acute Current Visit: Yes (2) delivery due to maternal disorder, delivered, current hospitalization SNOMED Code(s): 934842639 ICD Code: O82 - ENCOUNTER FOR DELIVERY WITHOUT INDICATION; O99.89 - OTH DISEASES AND CONDITIONS COMPL PREG/CHLDBRTH Status: Acute Current Visit : Yes (3) History of SNOMED Code(s): 966443509 ICD Code: Z98.891 - HISTORY OF UTERINE SCAR FROM PREVIOUS SURGERY Status: Acute Current Visit: Yes - Patient Summary/Data Operative Procedure(s) Performed: Repeat low segment transverse ( fifth ). Cystorrhaphy Complications: Urine drug screen positive presumptive for methamphetamine postop Consults: None Hospital Course: Patient received 2 units transfusion after surgery as well as 2 units of O- blood during surgery. - Patient Instructions Diet: Regular Diet as Tolerated Driving: Do Not Drive (2 weeks) Showering/Bathing: May Shower, No Tub Bathing/Swimming (6 weeks) Wound/Incision Care: Keep Operative Site/Wound Site Clean and Dry Notify Provider of: Fever, Increased Pain, Swelling and Redness, Drainage, Nausea and/or Vomiting - Discharge Plan Prescriptions/Med Rec: Acetaminophen/oxyCODONE [Percocet 325-5 MG] 1 tab PO Q8H PRN #10 tablet PRN Reason: Pain Nitrofurantoin [place]/Macrocryst [Nitrofurantoin [place]-MCR] 100 mg PO BID #20 cap Home Medications: Home Meds Acetaminophen [Tylenol] 650 mg PO Q4H PRN tablet 12/11/17 [Rx] Acetaminophen/oxyCODONE [Percocet 325-5 MG] 1 tab PO Q8H PRN #10 tablet [Rx] Docusate Sodium [Colace] 100 mg PO Q12H PRN cap 12/11/17 [Rx] Ibuprofen [Motrin] 600 mg PO Q6H PRN tablet 12/11/17 [Rx] Lanolin [Lansinoh HPA] 1 applic TOP ASDIRECTED PRN tube 12/11/17 [Rx] Nitrofurantoin [place]/Macrocryst [Nitrofurantoin [place]-MCR] 100 mg PO BID #20 cap 12/11/17 [Rx] Referrals: Erick Guevaar MD [Primary Care Provider] - (Sunday to remove pro has appointment for 11:30 AM) - Discharge Summary/Plan Comment DC Time >30 min.: No - Patient Data Vitals - Most Recent: Last Vital Signs Temp 98.2 F 12/11/17 07:48 Pulse 75 12/11/17 07:48 Resp 18 12/11/17 07:48 BP 131/76 12/11/17 07:48 Pulse Ox 96 12/11/17 07:48 Weight - Most Recent: 148 lb I&O - Last 24 hours: Intake & Output 05/28/18 05/29/18 05/29/18 22:59 06:59 14:59 Intake Total 0 Output Total 073 715 936 Balance -714 -873 -665 Lab Results - Last 24 hrs: Laboratory Results - last 24 hr 12/10/17 12/10/17 12/10/17 Range/Units 10:46 20:40 20:40 WBC (3.98-10.04) K/mm3 RBC (3.98-5.22) M/mm3 Hgb (11.2-15.7) gm/L Hct (34.1-44.9) % MCV (79.4-94.8) fl MCH (25.6-32.2) pg MCHC (32.2-35.5) g/dl RDW Std Deviation (36.4-46.3) fL Plt Count (182-369) K/mm3 MPV (9.4-12.3) fl Neut % (Auto) (34.0-71.1) % Lymph % (Auto) (19.3-51.7) % [place] % (Auto) (4.7-12.5) % Eos % (Auto) (0.7-5.8) Baso % (Auto) (0.1-1.2) % Neut # (Auto) (1.56-6.13) K/mm3 Lymph # (Auto) (1.18-3.74) K/mm3 [place] # (Auto) (0.24-0.36) K/mm3 Eos # (Auto) (0.04-0.36) K/mm3 Baso # (Auto) (0.01-0.08) K/mm3 Manual Slide Review Urine Color Yellow (Yellow) Urine Appearance Clear (Clear) Urine pH 7.0 (5.0-8.0) Ur Specific [place] > or = 1.030 (1.005-1.030) Urine Protein Trace H (Negative) Urine Glucose (UA) Negative (Negative) Urine Ketones Negative (Negative) Urine Occult Blood 1+ H (Negative) Urine Nitrite Negative (Negative) Urine Bilirubin Negative (Negative) Urine Urobilinogen 1.0 (0.2-1.0) Ur Leukocyte Esterase Negative (Negative) Urine Opiates Screen Negative (NEGATIVE) Ur Buprenorphine Scrn Negative (NEGATIVE) Ur Oxycodone Screen Presumptive positive H (NEGATIVE) Urine Methadone Screen Negative (NEGATIVE) Ur Propoxyphene Screen Negative (NEGATIVE) Ur Barbiturates Screen Negative (NEGATIVE) Ur Tricyclics Screen Negative (NEGATIVE) Ur Phencyclidine Scrn Negative (NEGATIVE) Ur Amphetamine Screen Presumptive positive H (NEGATIVE) U Methamphetamines Scrn Negative (NEGATIVE) U Benzodiazepines Scrn Negative (NEGATIVE) U Cocaine Metab Screen Negative (NEGATIVE) U Marijuana (THC) Screen Negative (NEGATIVE) Blood Type A POSITIVE Gel Antibody Screen Negative Crossmatch See Detail 12/11/17 Range/Units 05:55 WBC 9.78 (3.98-10.04) K/mm3 RBC 3.32 L (3.98-5.22) M/mm3 Hgb 9.4 L (11.2-15.7) gm/L Hct 29.5 L (34.1-44.9) % MCV 88.9 (79.4-94.8) fl MCH 28.3 (25.6-32.2) pg MCHC 31.9 L (32.2-35.5) g/dl RDW Std Deviation 52.9 H (36.4-46.3) fL Plt Count 216 (182-369) K/mm3 MPV 9.3 L (9.4-12.3) fl Neut % (Auto) 65.4 (34.0-71.1) % Lymph % (Auto) 24.4 (19.3-51.7) % [place] % (Auto) 7.5 (4.7-12.5) % Eos % (Auto) 1.3 (0.7-5.8) Baso % (Auto) 0.2 (0.1-1.2) % Neut # (Auto) 6.39 H (1.56-6.13) K/mm3 Lymph # (Auto) 2.39 (1.18-3.74) K/mm3 [place] # (Auto) 0.73 H (0.24-0.36) K/mm3 Eos # (Auto) 0.13 (0.04-0.36) K/mm3 Baso # (Auto) 0.02 (0.01-0.08) K/mm3 Manual Slide Review Abnormal smear Urine Color (Yellow) Urine Appearance (Clear) Urine pH (5.0-8.0) Ur Specific [place] (1.005-1.030) Urine Protein (Negative) Urine Glucose (UA) (Negative) Urine Ketones (Negative) Urine Occult Blood (Negative) Urine Nitrite (Negative) Urine Bilirubin (Negative) Urine Urobilinogen (0.2-1.0) Ur Leukocyte Esterase (Negative) Urine Opiates Screen (NEGATIVE) Ur Buprenorphine Scrn (NEGATIVE) Ur Oxycodone Screen (NEGATIVE) Urine Methadone Screen (NEGATIVE) Ur Propoxyphene Screen (NEGATIVE) Ur Barbiturates Screen (NEGATIVE) Ur Tricyclics Screen (NEGATIVE) Ur Phencyclidine Scrn (NEGATIVE) Ur Amphetamine Screen (NEGATIVE) U Methamphetamines Scrn (NEGATIVE) U Benzodiazepines Scrn (NEGATIVE) U Cocaine Metab Screen (NEGATIVE) U Marijuana (THC) Screen (NEGATIVE) Blood Type Gel Antibody Screen Crossmatch Med Orders - Current: Current Medications Acetaminophen (Tylenol) 650 mg PO Q4H PRN PRN Reason: mild pain or fever Last Admin: 12/10/17 12:58 Dose: 325 mg Diphenhydramine HCl (Benadryl) 25 mg IVPUSH Q6H PRN PRN Reason: Itching or Nausea Last Admin: 12/10/17 12:57 Dose: 25 mg Docusate Sodium (Colace) 100 mg PO Q12H PRN PRN Reason: Constipation Last Admin: 12/10/17 20:28 Dose: 100 mg Emollient Ointment (Lansinoh Hpa) 0 gm TOP ASDIRECTED PRN PRN Reason: Sore Nipples Ephedrine Sulfate (Ephedrine Sulfate) 5 mg IVPUSH SEECOMMENT PRN PRN Reason: Other Sodium Chloride (Normal Saline) 500 mls @ 500 mls/hr IV .[facility] Last Admin: 12/08/17 17:11 Dose: 500 mls/hr Sodium Chloride (Normal Saline) 500 mls @ 150 mls/hr IV ASDIRECTED [facility] Last Admin: 12/10/17 12:56 Dose: 150 mls/hr Ibuprofen (Motrin) 600 mg PO Q6H PRN PRN Reason: mild pain or fever Last Admin: 12/11/17 04:39 Dose: 600 mg Naloxone HCl (Narcan) 0.1 mg IVPUSH SEECOMMENT PRN PRN Reason: Respiratory Depression Nitrofurantoin Macrocrystals (Macrobid) 100 mg PO BID [facility] Last Admin: 12/11/17 08:11 Dose: 100 mg Ondansetron HCl (Zofran) 4 mg IV Q8H PRN PRN Reason: Nausea/Vomiting Oxycodone/Acetaminophen (Percocet 325-5 Mg) 1 tab PO Q6H PRN PRN Reason: Pain Last Admin: 12/11/17 08:11 Dose: 1 tab [facility]ethic[facility] ([facility]eth[facility]one) [facility] Last Admin: 12/11/17 08:12 Dose: 80 mg Discontinued Medications Bupivacaine HCl (Marcaine 0.5%) Confirm Administered Dose 30 ml .ROUTE .STK-MED ONE Stop: 12/08/17 06:09 Last Admin: 12/08/17 06:34 Dose: 17 ml Cefazolin Sodium (Ancef) Confirm Administered Dose 2 gm .ROUTE .STK-MED ONE Stop: 12/08/17 06:17 Citric Acid/Sodium Citrate (Bicitra Solution) Confirm Administered Dose 30 ml .ROUTE .STK-MED ONE Stop: 12/08/17 06:03 Last Admin: 12/09/17 12:32 Dose: Not Given Citric Acid/Sodium Citrate (Bicitra Solution) 30 ml PO ONETIME ONE Stop: 12/08/17 06:12 Last Admin: 12/09/17 12:32 Dose: Not Given Diphenhydramine HCl (Benadryl) 25 mg IVPUSH Q6H PRN PRN Reason: Pruritis Diphenhydramine HCl (Benadryl) 25 mg PO ONETIME ONE Stop: 12/10/17 10:21 Last Admin: 12/10/17 13:01 Dose: Not Given Ephedrine Sulfate (Ephedrine Sulfate) 5 mg IVPUSH ASDIRECTED PRN PRN Reason: Hypotension Ephedrine Sulfate (Ephedrine In Ns) Confirm Administered Dose 25 mg .ROUTE .STK- MED ONE Stop: 12/08/17 07:28 Fentanyl (Sublimaze) 50 mcg IVPUSH Q5M PRN PRN Reason: Pain Lactated Ringer's (Ringers, Lactated) Confirm Administered Dose 2,000 mls @ as directed .ROUTE .STK-MED ONE Stop: 12/08/17 06:17 Cefazolin Sodium/Dextrose 2 gm (/ Premix) 50 mls @ 100 mls/hr IV ONETIME ONE Stop: 12/08/17 06:40 Last Admin: 12/09/17 10:30 Dose: Not Given Lactated Ringer's (Ringers, Lactated) 1,000 mls @ 125 mls/hr IV ASDIRECTED [facility] Lidocaine HCl (Xylocaine-Mpf 1%) Confirm Administered Dose 2 mls @ as directed .ROUTE .STK-MED ONE Stop: 12/08/17 07:11 Dextrose/Lactated Ringer's (Dextrose 5%-Lactated Ringers) 1,000 mls @ 125 mls/ hr IV ASDIRECTED [facility] Stop: 12/08/17 17:38 Last Admin: 12/08/17 12:02 Dose: 125 mls/hr Ketorolac Tromethamine (Toradol) Confirm Administered Dose 30 mg .ROUTE .STK- MED ONE Stop: 12/08/17 06:17 Ketorolac Tromethamine (Toradol) 30 mg IVPUSH ONETIME ONE Stop: 12/08/17 06:51 Last Admin: 12/09/17 12:33 Dose: Not Given Ketorolac Tromethamine (Toradol) 30 mg IVPUSH Q6H [facility] Stop: 12/09/17 01:01 Last Admin: 12/09/17 02:42 Dose: 30 mg Metoclopramide HCl (Reglan) Confirm Administered Dose 10 mg .ROUTE .STK-MED ONE Stop: 12/08/17 06:03 Last Admin: 12/09/17 12:32 Dose: Not Given Metoclopramide HCl (Reglan) 10 mg IVPUSH ONETIME ONE Stop: 12/08/17 06:12 Last Admin: 12/09/17 12:32 Dose: Not Given Morphine Sulfate (Duramorph Pf) Confirm Administered Dose 10 mg .ROUTE .STK-MED ONE Stop: 12/08/17 06:17 Ondansetron HCl (Zofran) Confirm Administered Dose 4 mg .ROUTE .STK-MED ONE Stop: 12/08/17 06:17 Ondansetron HCl (Zofran) 4 mg IVPUSH ONETIME PRN PRN Reason: Nausea/Vomiting Oxytocin (Pitocin) Confirm Administered Dose 10 unit .ROUTE .STK-MED ONE Stop: 12/08/17 06:17 Oxytocin (Pitocin) Confirm Administered Dose 10 unit .ROUTE .STK-MED ONE Stop: 12/08/17 06:49 Phenylephrine HCl (Phenylephrine In Ns 100 Mcg/Ml) Confirm Administered Dose 2 mg .ROUTE .STK-MED ONE Stop: 12/08/17 07:28 Sodium Chloride (Saline Flush) 10 ml FLUSH ASDIRECTED PRN PRN Reason: Keep Vein Open
== END 2017-12-11 11:30 | disposition home or self-care (01) | DRG 765 ==
LOC: JD.OBCHECK 05:35 → JD.OB 05:36
PROVIDERS: ADMIT Obstetrics & Gynecology; ATTEND Obstetrics & Gynecology
PROC: 10D00Z1 Extraction of Products of Conception, Low, Open Approach (ICD-10-PCS; principal; 2017-12-08)
PROC: 0TQB0ZZ Repair Bladder, Open Approach (ICD-10-PCS; 2017-12-08)
PROC: 30233N1 Transfusion of Nonautologous Red Blood Cells into Peripheral Vein, Percutaneous Approach (ICD-10-PCS; 2017-12-08)
DX: O34.211 Maternal care for low transverse scar from previous cesarean delivery (principal); O72.1 Other immediate postpartum hemorrhage; S37.29XA Other injury of bladder, initial encounter; T83.098A Other mechanical complication of other urinary catheter, initial encounter; Z3A.40 40 weeks gestation of pregnancy; Z37.0 Single live birth; O90.81 Anemia of the puerperium; D64.9 Anemia, unspecified; N32.89 Other specified disorders of bladder; Y73.8 Miscellaneous gastroenterology and urology devices associated with adverse incidents, not elsewhere classified; Y65.8 Other specified misadventures during surgical and medical care; Y92.234 Operating room of hospital as the place of occurrence of the external cause
CPT/HCPCS: 36415; 36430; 80306; 81001; 81003; 85025; 85027; 86592; 86762; 86803; 86850; 86900; 86901; 86922; 87340; A9270-GY; G0433; J0690; J1200; J1885; J2001; J2270; J2405; J2590; J7040; J7042; J7050; J7120; P9016